=== PATIENT | male | born 1995 | race Asian ===

== ENCOUNTER 2019-02-09 04:03 | Emergency (ER) | payer SELFPAY ==
[~2019-02-09] VITALS: Ht 170.2 cm; Wt 68.0 kg
[2019-02-09 04:07] VITALS: BP 115/59
== END 2019-02-09 04:34 | disposition left against medical advice (07) ==
LOC: ER 04:03
DX: Z53.21 Procedure and treatment not carried out due to patient leaving prior to being seen by health care provider (principal)